=== PATIENT | male | born 1985 | race African-American/Black ===

== ENCOUNTER 2022-07-15 09:06 | Emergency (ER) | payer OTHER ==
[~2022-07-15] VITALS: Ht 167.6 cm; Wt 77.3 kg
[2022-07-15 09:19] VITALS: BP 155/96
[2022-07-15] MEDS ORDERED: KETOROLAC TROMETH 60MG/2ML VIAL IM ONE (09:30)
[2022-07-15] MEDS ORDERED: METH750T22 PO (10:30)
[2022-07-15] MEDS ORDERED: IBUP800T27 PO (10:30)
== END 2022-07-15 10:40 | disposition home or self-care (01) ==
LOC: ER 09:06
DX: M24.9 Joint derangement, unspecified (principal)
CPT/HCPCS: 73030; 96372; 99283; J1885